=== PATIENT | female | born 1940 | race Caucasian/White ===

== ENCOUNTER 2016-08-05 08:59 | Emergency (ER) | payer MEDICARE, MEDICAID ==
[2016-08-05 08:59] VITALS: BMI 40.3
[2016-08-05 09:18] VITALS: TEMP 98.2; O2SAT 97
[2016-08-05 09:36] VITALS: RESP 16
--- NOTE | 2016-08-05 09:57 | ED PDOC ---
Arrival/HPI - General Chief Complaint: Dizziness/Lightheaded Time Seen by Provider: 08/05/16 09:22 Historian: Patient - History of Present Illness Narrative History of Present Illness (Text): 08/05/16 09:33 This 76 female, PMHx includes Hypertension, stroke, Lupus, Diabetes and Asthma, presents to the emergency department accompanied by daughter with complaints of female presents to this ED c/o dizziness, and a sensation of right ear is swollen x 3-4 days. Patient stated she had a chronic dizziness since stroke, but dizziness has worsen. Patient denies fever, sob, cp, abdominal pain, urinary symptoms, ZAVALETA, hearing loss, tinnitus, diplopia, dysarthria, dysphagia, n/v, rash, recent travel, or sick contact. Patient noted a URI x 2 weeks ago, in which her pmd prescribed her ABX. Time/Duration: Other (3-4 days) Context: Home Past Medical History - Provider Review Nursing Documentation Reviewed: Yes - Infectious Disease Hx of Infectious Diseases: None - Tetanus Immunization Tetanus Immunization: Unknown - Reproductive Menopause: Yes - Cardiac Hx Hypertension: Yes Hx Pacemaker: No - Pulmonary Hx Asthma: Yes Hx Chronic Obstructive Pulmonary Disease (COPD): Yes - Neurological Hx Paralysis: No - Endocrine/Metabolic Hx Diabetes Mellitus Type 2: Yes - Hematological/Oncological Hx Blood Transfusions: No Hx Blood Transfusion Reaction: No - Musculoskeletal/Rheumatological Hx Musculoskeletal Disorders: Yes - Psychiatric Hx Emotional Abuse: No Hx Physical Abuse: No Hx Substance Use: No - Past Surgical History Past Surgical History: No Previous - Surgical History Hx Hysterectomy: Yes - Anesthesia Hx Anesthesia Reactions: No Hx Malignant Hyperthermia: No - Suicidal Assessment Feels Threatened In Home Enviroment: No Family/Social History - Physician Review Nursing Documentation Reviewed: Yes Family/Social History: No Known Family HX Smoking Status: Never Smoked Hx Alcohol Use: No Hx Substance Use: No Hx Substance Use Treatment: No Allergies/Home Meds Allergies/Adverse Reactions: Allergies No Known Allergies Allergy (Verified 08/05/16 09:18) Home Medications: Home Meds Medication Instructions Recorded Confirmed Levothyroxine Sodium 0.75 mg PO DAILY 04/26/13 08/05/16 [Levothyroxine Sodium] Albuterol Sulfate [Proair Hfa] 0.09 mg IH BID 08/05/16 08/05/16 MetFORMIN [glucOPHAGE] 500 mg PO DAILY 08/05/16 08/05/16 Montelukast [Singulair] 10 mg PO DAILY 08/05/16 08/05/16 Omeprazole 20 mg PO DAILY 08/05/16 08/05/16 amLODIPine [Norvasc] 5 mg PO DAILY 08/05/16 08/05/16 Review of Systems - Review of Systems Constitutional: Normal. absent: Fatigue, Weight Change, Fevers, Night Sweats Eyes: Normal. absent: Vision Changes, Photophobia, Eye Pain ENT: Other (Right ear feels swollen). absent: Hearing Changes, Tinnitus, TMJ Pain, Sore Throat, Rhinorrhea, Epistaxis Respiratory: Normal. absent: SOB, Cough, Sputum, Wheezing Cardiovascular: Normal. absent: Chest Pain, Palpitations Gastrointestinal: Normal. absent: Abdominal Pain, Nausea, Vomiting Genitourinary Female: Normal Musculoskeletal: Normal Skin: Normal Neurological: Dizziness. absent: Headache, Focal Weakness, Speech Changes, Facial Droop, Seizure Endocrine: Normal Hemo/Lymphatic: Normal Psychiatric: Normal Physical Exam Vital Signs Temp Pulse Resp BP Pulse Ox 08/05/16 10:58 75 16 172/83 H 97 08/05/16 09:15 98.2 F 80 16 160/80 H 97 08/05/16 09:14 98.2 F 80 18 160/80 H 97 Temperature: Afebrile Blood Pressure: Normal Pulse: Regular Respiratory Rate: Normal Appearance: Positive for: Well-Appearing, Non-Toxic, Comfortable Pain Distress: None Mental Status: Positive for: Alert and Oriented X 3 - Systems Exam Head: Present: Atraumatic, Normocephalic Pupils: Present: PERRL Extroacular Muscles: Present: EOMI Conjunctiva: Present: Normal Ears: Present: Normal, NORMAL TM, Erythema, Fluid. No: Normal Canal Mouth: Present: Moist Mucous Membranes, Normal Lips, Normal Tounge. No: Drooling Pharnyx: Present: Normal. No: ERYTHEMA, EXUDATE, TONSILS ENLARGED Neck: Present: Normal Range of Motion, Trachea Midline. No: MIDLINE TENDERNESS , Paraspinal Tenderness, Lymphadenopathy Respiratory/Chest: Present: Clear to Auscultation, Good Air Exchange. No: Respiratory Distress, Accessory Muscle Use, Wheezes, Retracting, Rhonchi Cardiovascular: Present: Regular Rate and Rhythm, Normal S1, S2. No: Murmurs Abdomen: Present: Normal Bowel Sounds. No: Tenderness, Distention, Peritoneal Signs Back: Present: Normal Inspection Upper Extremity: Present: Normal Inspection. No: Cyanosis, Edema Lower Extremity: Present: Normal Inspection. No: Edema Neurological: Present: GCS=15, CN II-XII Intact, Speech Normal, Motor Func Grossly Intact, Normal Sensory Function, Normal Cerebellar Funct, Norm Deep Tendon Reflexes, Gait Normal, Memory Normal Skin: Present: Warm, Dry, Normal Color. No: Rashes Psychiatric: Present: Alert, Oriented x 3 Medical Decision Making ED Course and Treatment: 08/05/16 11:47 Re-evaluation. Patient feels better. Discussed results and plan with patient who expresses understanding. All questions answered and there is agreement with the plan to discharge home with instructions. Patient stable for discharge. Return if symptoms persist or worsen. Patient has a normal gait. Re-evaluation Time: 11:48 Reassessment Condition: Re-examined, Improved - Lab Interpretations Lab Results: 08/05/16 09:58 08/05/16 09:58 Lab Results 08/05/16 09:58: Sodium 138, Potassium 4.2, Chloride 97 L, Carbon Dioxide 29, Anion Gap 16, BUN 19, Creatinine 0.7, Est GFR ( Amer) > 60, Est GFR (Non- Af Amer) > 60, Random Glucose 105, Calcium 10.0, Total Bilirubin 0.6, AST 26, ALT 37, Alkaline Phosphatase 70, Total Protein 7.9, Albumin 4.3, Globulin 3.6, Albumin/Globulin Ratio 1.2 08/05/16 09:58: WBC 6.5 D, RBC 4.49, Hgb 13.0, Hct 40.0, MCV 89.1, MCH 29.0, MCHC 32.5, RDW 13.7, Plt Count 301, MPV 9.3, Gran % 61.7, Lymph % (Auto) 24.2, Garvin % (Auto) 8.8 H, Eos % (Auto) 5.0, Baso % (Auto) 0.3, Gran # 3.98, Lymph # 1.6, Garvin # 0.6, Eos # 0.3, Baso # 0.02 I have reviewed the lab results: Yes Interpretation: No clinic. lab abnormalty - RAD Interpretation Narrative RAD Interpretations (Text): 08/05/16 11:41 Accession No. : [id number] Patient Name / ID : HIRA BISHOP / [id number] Exam Date : 08/05/2016 10:33:54 ( Approved ) Study Comment : Sex / Age : F / [id number] Creator : Huy Fine MD Dictator : Huy Fine MD Blow Mold Technician : Tube Test Technician : Huy Fine MD Approver2 : Report Date : 08/05/2016 11:05:33 My Comment : PROCEDURE: CT HEAD WITHOUT CONTRAST. HISTORY: dizziness COMPARISON: None available. TECHNIQUE: Axial computed tomography images were obtained through the head/brain without intravenous contrast. Radiation dose: Total exam DLP = 880.48 mGy-cm. This CT exam was performed using one or more of the following dose reduction techniques: Automated exposure control, adjustment of the mA and/or kV according to patient size, and/or use of iterative reconstruction technique. FINDINGS: HEMORRHAGE: No intracranial hemorrhage. BRAIN: Minimal diffuse atrophy. Mild periventricular white matter lucency consistent with age-related microvascular ischemic change. VENTRICLES: Unremarkable. No hydrocephalus. CALVARIUM: Unremarkable. PARANASAL SINUSES: Minimal chronic sphenoid sinusitis. MASTOID AIR CELLS: Unremarkable as visualized. No inflammatory changes. OTHER FINDINGS: None. IMPRESSION: No intracranial mass, hemorrhage or evidence of acute infarct. Mild atrophy and mild chronic microvascular ischemic change. Radiology Orders: 08/05/16 09:52 HEAD W/O CONTRAST [CT] Stat - Medication Orders Current Medication Orders: Discontinued Medications Meclizine HCl (Antivert) 25 mg PO STAT STA Stop: 08/05/16 09:54 Last Admin: 08/05/16 10:04 Dose: 25 mg Disposition/Present on Arrival - Present on Arrival Any Indicators Present on Arrival: No History of DVT/PE: No History of Uncontrolled Diabetes: No Urinary Catheter: No History of Decub. Ulcer: No History Surgical Site Infection Following: None - Disposition Have Diagnosis and Disposition been Completed?: Yes Diagnosis: Benign paroxysmal vertigo Disposition: HOME/ ROUTINE Disposition Time: 11:48 Patient Plan: Discharge Condition: GOOD Discharge Instructions (ExitCare): Benign Paroxysmal Positional Vertigo (ED) Additional Instructions: Call Dr. Mercado ENT, for follow up visit in 1-2 days. Take medication as instructed. Return to emergency if symptoms returns or worsen. Prescriptions: Meclizine [Meclizine*] 25 mg PO Q6 PRN #30 tab PRN Reason: Dizziness Referrals: PCP,NO [Primary Care Provider] - Follow up with primary Neymar Mercado DO [Staff Provider] - Follow up with primary
[2016-08-05 10:20] LABS: ADD MANUAL DIFF? NO
[2016-08-05 10:27] LABS: BASO # 0.02 K/mm3 (0.0-2.0); BASO % 0.3 % (0.0-3.0); EOS # 0.3 (0.0-0.7); GRAN # 3.98 (1.4-6.5); GRAN % 61.7 % (50.0-68.0); LYMPH # 1.6 (1.2-3.4); LYMPH % 24.2 % (22.0-35.0); MEAN CELL VOLUME 89.1 fL (80.0-105.0); MEAN CORPUSCULAR HGB CONC 32.5 g/dl (31.0-37.0); MEAN PLATELET VOLUME 9.3 fl (7.0-11.0); MONO # 0.6 (0.1-0.6); MONO % 8.8 % (1.0-6.0); PLATELET COUNT 301 10^3/uL (120.0-450.0); RED CELL DISTRIBUTION WIDTH 13.7 % (11.5-14.5); WHITE BLOOD COUNT 6.5 10^3/ul (4.5-11.0)
[2016-08-05 10:34] LABS: ALB/GLOB RATIO 1.2 (1.1-1.8); ALKALINE PHOSPHATASE 70 U/L (38-133); ALT/SGPT 37 U/L (7-56); AST/SGOT 26 U/L (15-39); BILIRUBIN,TOTAL 0.6 mg/dL (0.2-1.3); BLOOD UREA NITROGEN 19 mg/dL (7-21); CARBON DIOXIDE 29 mmol/L (21-33); CHLORIDE 97 mmol/L (98-107); GFR AFRICAN-AMERICAN > 60; GLUCOSE,RANDOM 105 mg/dL (70-110); POTASSIUM 4.2 mmol/L (3.6-5.0); SODIUM 138 mmol/L (132-148); TOTAL PROTEIN 7.9 g/dL (5.8-8.3)
[2016-08-05 10:59] VITALS: BP 172/83; PULSE 75
--- NOTE | 2016-08-05 11:07 | CT ---
PROCEDURE: CT HEAD WITHOUT CONTRAST. HISTORY: dizziness COMPARISON: None available. TECHNIQUE: Axial computed tomography images were obtained through the head/brain without intravenous contrast. Radiation dose: Total exam DLP = 880.48 mGy-cm. This CT exam was performed using one or more of the following dose reduction techniques: Automated exposure control, adjustment of the mA and/or kV according to patient size, and/or use of iterative reconstruction technique. FINDINGS: HEMORRHAGE: No intracranial hemorrhage. BRAIN: Minimal diffuse atrophy. Mild periventricular white matter lucency consistent with age-related microvascular ischemic change. VENTRICLES: Unremarkable. No hydrocephalus. CALVARIUM: Unremarkable. PARANASAL SINUSES: Minimal chronic sphenoid sinusitis. MASTOID AIR CELLS: Unremarkable as visualized. No inflammatory changes. OTHER FINDINGS: None. IMPRESSION: No intracranial mass, hemorrhage or evidence of acute infarct. Mild atrophy and mild chronic microvascular ischemic change.
== END 2016-08-05 12:00 | disposition home or self-care (01) ==
LOC: ED 08:59
DX: H81.10 Benign paroxysmal vertigo, unspecified ear (principal); I10 Essential (primary) hypertension; Z86.73 Personal history of transient ischemic attack (TIA), and cerebral infarction without residual deficits

== ENCOUNTER 2018-06-15 11:42 | Emergency (ER) | payer MEDICARE, OTHER ==
[2018-06-15 11:42] VITALS: BMI 40.3
[2018-06-15 11:59] VITALS: RESP 16; TEMP 98.2
--- NOTE | 2018-06-15 12:17 | ED PDOC ---
Arrival/HPI - General Chief Complaint: Finger,Hand,&Wrist Time Seen by Provider: 06/15/18 12:03 Historian: Patient - History of Present Illness Narrative History of Present Illness (Text): 06/15/18 12:20 77 year old F with a PMHx of Arthritis, Hypertension, stroke, Lupus, Diabetes and Asthma, presents to the emergency department complaining of bilateral wrist pain for 3 days and worsening chronic left shoulder pain for several weeks. Patient also mentions she have had chronic blurry vision for years. Patient endorses she has a history of pain shots to the left shoulder but have not taken it for the last couple weeks. Patient denies fevers, chills, headache, chest pain, shortness of breath, dyspnea on exertion, cough, abdominal pain, nausea, vomiting, diarrhea, back pain, neck pain, or any other complaints. Time/Duration: > week Symptom Onset: Gradual Symptom Course: Unchanged Activities at Onset: Light Context: Home Past Medical History - Provider Review Nursing Documentation Reviewed: Yes - Infectious Disease Hx of Infectious Diseases: None - Tetanus Immunization Tetanus Immunization: Unknown - Cardiac Hx Cardiac Disorders: Yes Hx Hypertension: Yes - Pulmonary Hx Respiratory Disorders: Yes Hx Asthma: Yes Hx Chronic Obstructive Pulmonary Disease (COPD): Yes - Neurological Hx Paralysis: No - HEENT Hx HEENT Disorder: No - Renal Hx Renal Disorder: No - Endocrine/Metabolic Hx Endocrine Disorders: Yes Hx Diabetes Mellitus Type 2: Yes - Hematological/Oncological Hx Blood Disorders: No - Integumentary Hx Dermatological Disorder: No - Musculoskeletal/Rheumatological Hx Musculoskeletal Disorders: Yes Hx Arthritis: Yes - Gastrointestinal Hx Gastrointestinal Disorders: No - Genitourinary/Gynecological Hx Genitourinary Disorders: No - Psychiatric Hx Psychophysiologic Disorder: No Hx Substance Use: No - Past Surgical History Past Surgical History: No Previous - Surgical History Hx Hysterectomy: Yes - Anesthesia Hx Anesthesia Reactions: No Hx Malignant Hyperthermia: No - Suicidal Assessment Feels Threatened In Home Enviroment: No Family/Social History - Physician Review Nursing Documentation Reviewed: Yes Family/Social History: No Known Family HX Smoking Status: Never Smoked Hx Alcohol Use: No Hx Substance Use: No Hx Substance Use Treatment: No Allergies/Home Meds Allergies/Adverse Reactions: Allergies No Known Allergies Allergy (Verified 06/15/18 11:55) Home Medications: Home Meds Medication Instructions Recorded Confirmed Levothyroxine Sodium 0.75 mg PO DAILY 04/26/13 08/05/16 Albuterol Sulfate [Proair Hfa] 0.09 mg IH BID 08/05/16 08/05/16 MetFORMIN [glucOPHAGE] 500 mg PO DAILY 08/05/16 08/05/16 Montelukast [Singulair] 10 mg PO DAILY 08/05/16 08/05/16 Omeprazole 20 mg PO DAILY 08/05/16 08/05/16 amLODIPine [Norvasc] 5 mg PO DAILY 08/05/16 08/05/16 Review of Systems - Physician Review All systems were reviewed & negative as marked: Yes - Review of Systems Eyes: Other (Chronic Blurry Vision) Respiratory: absent: SOB, Cough Cardiovascular: absent: Chest Pain Gastrointestinal: absent: Abdominal Pain, Diarrhea, Nausea, Vomiting Musculoskeletal: Arthralgias (Bilateral wrist pain and left shoulder pain). absent: Back Pain, Neck Pain Skin: absent: Rash Neurological: absent: Headache Physical Exam Vital Signs Reviewed: Yes Vital Signs Temp Pulse Resp BP Pulse Ox 06/15/18 11:55 98.2 F 78 16 154/79 H 97 Temperature: Afebrile Blood Pressure: Normal Pulse: Regular Respiratory Rate: Normal Appearance: Positive for: Well-Appearing, Non-Toxic, Comfortable Pain Distress: None Mental Status: Positive for: Alert and Oriented X 3 - Systems Exam Head: Present: Atraumatic, Normocephalic Pupils: Present: PERRL Extroacular Muscles: Present: EOMI Conjunctiva: Present: Normal Respiratory/Chest: Present: Clear to Auscultation, Good Air Exchange. No: Respiratory Distress, Accessory Muscle Use Cardiovascular: Present: Regular Rate and Rhythm, Normal S1, S2. No: Murmurs Abdomen: No: Tenderness, Distention, Peritoneal Signs Back: Present: Normal Inspection Upper Extremity: Present: Tenderness (Left shoulder), Neurovascularly Intact. No: Normal ROM (Limited, not able to left arm above left shoulder) Lower Extremity: Present: Normal Inspection. No: Edema Neurological: Present: GCS=15, Speech Normal Skin: Present: Warm, Dry, Normal Color. No: Rashes Psychiatric: Present: Alert, Oriented x 3, Normal Insight, Normal Concentration Medical Decision Making ED Course and Treatment: 06/15/18 12:37 Impression: 77 year old F presents to the Emergency department complaining of bilateral wrist pain and left shoulder pain. Differential Diagnosis included but are not limited to: Carpal Tunnel syndrome Left shoulder pain secondary to arthritis Plan: --Toradol -- Reassess and disposition Prior Visits: Notes and results from previous visits were reviewed. Progress Notes: 06/15/18 12:45 On re-evaluation, patient informs improved symptoms. 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 Patient is aware, understands and agrees with plan. - Scribe Statement The provider has reviewed the documentation as recorded by the Mendez Marroquin training with Lucho All medical record entries made by the Mendez were at my direction and personally dictated by me. I have reviewed the chart and agree that the record accurately reflects my personal performance of the history, physical exam, medical decision making, and the department course for this patient. I have also personally directed, reviewed, and agree with the discharge instructions and disposition. Disposition/Present on Arrival - Present on Arrival Any Indicators Present on Arrival: No History of DVT/PE: No History of Uncontrolled Diabetes: No Urinary Catheter: No History of Decub. Ulcer: No History Surgical Site Infection Following: None - Disposition Diagnosis: Carpal tunnel syndrome on both sides, Shoulder pain, left Disposition: HOME/ ROUTINE Disposition Time: 12:58 Patient Problems: Current Active Problems Problem Status Onset Carpal tunnel syndrome on both sides Acute Shoulder pain, left Acute Condition: GOOD Discharge Instructions (ExitCare): Carpal Tunnel Syndrome (DC), Carpal Tunnel Exercises, Shoulder Pain (DC) Prescriptions: Naproxen [Naprosyn Tab] 250 mg PO Q12 7 Days #14 tab Referrals: [facility] [Outside] - Follow up with primary [facility] at [facility] [Outside] - Follow up with primary Robbie Ramires MD [Staff Provider] - Follow up with primary Forms: [employer] (Indian)
[2018-06-15 13:25] VITALS: BP 147/75; PULSE 80; O2SAT 99
== END 2018-06-15 13:24 | disposition home or self-care (01) ==
LOC: ED 11:42
DX: G56.03 Carpal tunnel syndrome, bilateral upper limbs (principal); M25.512 Pain in left shoulder
CPT/HCPCS: 96372; 99283; J1885

== ENCOUNTER 2018-06-15 16:57 | Emergency (ER) | payer MEDICARE, OTHER | END 2018-06-15 21:47 | disposition home or self-care (01) | LOC: ED 16:57 ==

== ENCOUNTER 2018-07-10 08:02 | Outpatient (CLI) | payer MEDICARE, OTHER | END 2018-07-10 08:03 | disposition home or self-care (01) | LOC: RAD 08:02 ==